=== PATIENT | female | born 1940 | race Caucasian/White ===

== ENCOUNTER 2017-02-10 12:41 | Inpatient (IN) | payer MEDICARE, OTHER ==
[~2017-02-10] VITALS: Ht 177.8 cm; Wt 80.7 kg
[2017-02-10 13:48] VITALS: BP 106/65; PULSE 84; RESP 18; O2SAT 95
[2017-02-10 14:27] LABS: Platelet Count 303 bil/L (150-400)
[2017-02-10 14:47] LABS: BASOPHILS % (AUTO) 1 % (0-3); EOSINOPHILS % (AUTO) 0 % (0-5); MONOCYTES % (AUTO) 3 % (4-12); NEUTROPHILS % (AUTO) 73 % (40-74)
[2017-02-10 14:51] VITALS: PULSE 87
[2017-02-10] MEDS ORDERED: ALBU18HF INH (14:53)
[2017-02-10] MEDS ORDERED: BISA-67 PO (14:54)
[2017-02-10] MEDS ORDERED: CETI10CA PO (14:56)
[2017-02-10] MEDS ORDERED: CITA40TA PO (14:56)
[2017-02-10] MEDS ORDERED: HYDR25CA PO (14:57)
[2017-02-10] MEDS ORDERED: DOCU-41 PO (14:57)
[2017-02-10] MEDS ORDERED: LEVO50TA6 PO (14:59)
[2017-02-10] MEDS ORDERED: LISI-571 PO (14:59)
[2017-02-10] MEDS ORDERED: INSU100I SUBQ (14:59)
[2017-02-10] MEDS ORDERED: LIT300 PO (15:00)
[2017-02-10] MEDS ORDERED: LOVA40TA PO (15:00)
[2017-02-10] MEDS ORDERED: METF500T3 PO (15:01)
--- NOTE | 2017-02-10 15:01 | PCM.HPMED ---
Subjective Date of Service Feb 10, 2017 Primary Provider: Admitting Physician: Aiyana Kirk MD Primary Care Physician: Cassy Rogers MD Attending Physician: Aiyana Kirk MD Chief Complaint: Diarrhea vomiting and abdominal pain History of Present Illness: Patient is markedly confused, therefore I was not able to obtain detailed history from the patient as per the report from [facility] This is a 76-year-old Female who has history of diabetes, arthritis, asthma, hypothyroidism, GERD, hyperlipidemia, bipolar disease, hypertension presented initially yesterday with diarrhea, vomiting and abdominal pain at [facility]. Came in by aid car. At the time of presentation, patient reports that she had been sick for about one week but she was already looked quite confused and sleepy. In the emergency room at [facility], patient did have some rectal bleeding, liquid and runny stools. Patient did not have any fevers. Patient had CT ABDOMEN with contrast shows patient has diffuse colitis from transfers, descending, sigmoid colon was thought to be chronic with unclear etiology. I will noted, patient had colonoscopy in June 2016 at [facility] which showed diverticulosis as well as large internal hemorrhoids, one of which was ulcerated. Patient was admitted with diagnosis of colitis, patient was given IV ceftriaxone and Flagyl, however patient continued to have abdominal pain, nausea. Given elevated ALP and gallstones seen on CAT scan, patient had ultrasound of abdomen which showed signs of cholecystitis with multiple gallstones. Because operating room at [facility] under construction, patient was transferred to [facility] after discussion with Dr. Mai Hanna surgeon at [facility], tentative scheduled for surgery this evening. During the interview at [facility] [place] arrival, VS remained stable. pt answered in full sentences, but not coherent, unable to answer questions appropriately, seemed paronoid, stated that she wanted to go home, wants to call visual design lead. denied came in to [facility] by aid car. Patient admitted that she has some nausea , otherwise patient was alert, only oriented to herself. Review of Systems: Pertinent positives as noted in history of present illness. All other systems were reviewed and are negative Allergies Coded Allergies: Penicillins (Verified Allergy, Mild, rash, 02/10/17) levofloxacin (Verified Allergy, Mild, 02/10/17) redness/burning at injection site sulfamethoxazole (Verified Allergy, Mild, rash, 02/10/17) trimethoprim (Verified Allergy, Mild, rash, 02/10/17) bupivacaine (Verified Allergy, Unknown, 02/10/17) lidocaine (Verified Allergy, Unknown, 02/10/17) Advised by surgeon not to use Home Medications Dulcolax Olopatadine 2.5 mL drops Colace 100 mg daily Zyrtec 10 mg daily when necessary Excedrin 250-250-65 one tablet when necessary Tapentadol 50 mg every 4 when necessary for pain Triamcinolone 0.1% ointment 3 times a day Albuterol 1 puff as needed Omeprazole 20 mg daily Lisinopril 5 mg daily Lovastatin 40 mg daily Levothyroxine 50 mcg Citalopram 40 mg Metformin ER 1000 mg daily at bedtime [place] carbonate 300 mg twice a day Hydroxyzine 25 mg every 4h PMH Type II diabetes Arthritis Asthma Hypothyroidism GERD Hyperlipidemia Bipolar disease recent detached retina Stated history of temporal arteritis Hypertension Vertigo GI bleed Surgical History OLIMPIA /BSO Left rotator cuff repair Cataract surgery left eye Recent right eye retinal laser surgery Left rotator cuff surgery February 2016 Foot fracture repair Social History Hx Alcohol Use: No Hx Substance Use: No Hx Tobacco Use: No Exam Exam pt only allowed limited abdominal exam, abd soft and mildly tender periumbilical area, Assessment & Plan This is a 76-year-old male who has history of diabetes, arthritis, asthma, hypothyroidism, GERD, hyperlipidemia, bipolar disease, hypertension presented initially yesterday with diarrhea, vomiting and abdominal pain. pt was found to have colitis, cholescystitis. pt was transferred to [facility] due to unavailability of OR at [facility]. Acute, active Acute encephalopathy, POA, likely septic or exacerbated BPD, nonfocal on exam grossly -will continue home psychiatric meds today -neurocheck q2-4h acute on chronic colitis, POA, unclear this is source of infection, report from radiology stated this is more chronic etiology, pt is not reliable historian. pt was started on CFX, flagyl at [facility] -will continue CFX, flagyl for now, pt seems clinically improving as she is more alert, pt does have allergy to Levaquin -continue IVF 125cc/hr -stool PCR, FOBT given hx of GIB, liquid stool, reported GIB at [facility] acute cholecysitis, POA, based on CT/US from [facility], -awaits repeat labs, surgical eval. -keep NPO DERICK, POA, reportedly pt doesn't have CKD at baseline, prerenal vs ATN from infection. -continue hydrate, Chronic, stable Type II diabetes, get a1c, CMP, fsg qac, hs Arthritis, not active Asthma, seemed stable, continue albuterol prn, Hypothyroidism, continue home synthyroid GERD, continue PPI 20mg qd Hyperlipidemia, continue home statin Bipolar disease, as above recent detached retina, continue eye drops Stated history of temporal arteritis, seemed unlikely contributing current presentation. Hypertension, resume home meds once med rec done Vertigo hx of GIB, as above dispo:Patient will be admitted with inpatient status with expectation of inpatient therapy for more than 2 midnights diet:NPO for now dvt ppx:SCD Full code for now contact: sibling documented in chart, number not in service. Time spent 65min Barney Lin MD Feb 10, 2017 13:42
[2017-02-10] MEDS ORDERED: OLOP2.5D OP (15:02)
[2017-02-10] MEDS ORDERED: OMEP20CA11 PO (15:02)
[2017-02-10] MEDS ORDERED: TAPE50TA7 PO (15:03)
[2017-02-10] MEDS ORDERED: KEN1O TOP (15:04)
[2017-02-10] MEDS ORDERED: cefTRIAXone Inj 1,000 MG in Dextrose 5% Minibag Plus 50 ML IV ONE (15:10)
--- NOTE | 2017-02-10 15:47 | PCM.HPSURG ---
Subjective Date of Service: Feb 10, 2017 Referring Provider: Admitting Physician: Aiyana Kirk MD Primary Care Physician: Cassy Rogers MD Attending Physician: Aiyana Kirk MD Chief Complaint Abdominal pain and diarrhea History of Present Illness Marina Holman is a 76 year old female who is confused and unable to provide a history. Thus, her history is gleaned from the transfer records from [facility]. Marina has a history of diabetes, arthritis, asthma, hypothyroidism, GERD, hyperlipidemia, bipolar disease, hypertension. She reportedly presented to their ED on 02/09/2017 with multiple bouts of diarrhea, vomiting, nausea and abdominal pain. She was noted to have some rectal bleeding and liquid brown stools. She underwent CT Abdomen and Pelvis which demonstrated diffuse colitis of unknown etiology. She was started on IV ceftriaxone and flagyl but continued to have abdominal pain and nausea this morning. She underwent an abdominal ultrasound demonstrating an immobile gallstone but no associated gallbladder wall thickening or pericholecystic fluid. However, given her worsening confusion , signs of possible cholecystitis and diffuse colitis she was accepted in transfer to [facility] because no OR capabilities were available at [facility]. On arrival to the floor she is afebrile, hemodynamically normal, not tachycardic or tachypneic, has not peritoneal signs but is very confused and paranoid that she is involved in some sort of scheme. She does understand she is at a hospital and can identify herself. She is unable to identify any family members. Allergy Allergies: Coded Allergies: Penicillins (Verified Allergy, Mild, rash, 02/10/17) levofloxacin (Verified Allergy, Mild, 02/10/17) redness/burning at injection site sulfamethoxazole (Verified Allergy, Mild, rash, 02/10/17) trimethoprim (Verified Allergy, Mild, rash, 02/10/17) bupivacaine (Verified Allergy, Unknown, 02/10/17) lidocaine (Verified Allergy, Unknown, 02/10/17) Advised by surgeon not to use Medications Home medications Dulcolax Olopatadine 2.5 mL drops Colace 100 mg daily Zyrtec 10 mg daily when necessary Excedrin 250-250-65 one tablet when necessary Tapentadol 50 mg every 4 when necessary for pain Triamcinolone 0.1% ointment 3 times a day Albuterol 1 puff as needed Omeprazole 20 mg daily Lisinopril 5 mg daily Lovastatin 40 mg daily Levothyroxine 50 mcg Citalopram 40 mg Metformin ER 1000 mg daily at bedtime [place] carbonate 300 mg twice a day Hydroxyzine 25 mg every 4h Past Surgical History Operations: OLIMPIA /BSO Left rotator cuff repair Cataract surgery left eye Recent right eye retinal laser surgery Left rotator cuff surgery February 2016 Foot fracture repair Social History Hx Alcohol Use: No Hx Substance Use: No Hx Tobacco Use: No PMH Other History Other Pertinent History: Type II diabetes, Arthritis. Asthma, Hypothyroidism, GERD, Hyperlipidemia, Bipolar disease, Recent detached retina, Stated history of temporal arteritis, Hypertension, Vertigo, GI bleed Social History Hx Alcohol Use: NoHx Substance Use: NoHx Tobacco Use: No Review of Systems Gastrointestinal: Reports: Abdominal Pain, Diarrhea, Nausea Additional Information Unable to assess, patient confused and cannot participate in interview. H&P Surgical Exam Exam General: Alert, No Acute Distress Neck: Supple Lungs: Clear to Auscultation, Normal Air Movement Heart: Regular Rate/Rhythm Abdomen: Soft, Non-distended, No masses, Other (Tender to deep palpation in the left lower quadrant and suprapubic region. Negative Denise's sign. Non tender in the RUQ. Vertical umbilical scar. No other surgical scars appreciated. ) Extremities: Distal Pulses Palpable, Warm Neuro: Grossly Neurologically Intact Catheters: Urethral 2 [address] [facility] Results: [facility] Results significant for: AlkP 184, BUN 33, Cr 2, WBC 12.8, Hct 35.8, Neutrophils 84% and ALT/AST/Total bilirubin within normal limits. Stool PCR negative Stool culture pending. Diagnostics: CT Abdomen/Pelvis: Active colitis involving transverse, descending and sigmoid colon. Similar to previous CT scans suggesting recurrent colitis. Cholelithiasis without evidence of cholecystitis. US Abdomen: Multiple gallstones, 1.3cm nonmobile stone in gallbladder neck. No intra/ extrahepatic biliary ductal dilatation. Gallbladder wall thickness normal, no pericholecystic fluid. Assessment & Plan Assessment 76 year old female with altered mental status, abdominal pain and diarrhea in the setting of recurrent transverse, descending and sigmoid colitis, leukocytosis, and abdominal ultrasound findings of cholelithiasis in the absence of acute cholecystitis lab or US findings and abdominal exam with isolated LLQ tenderness. Plan: Her clinical presentation, lab findings and exam lend to a differential diagnosis including infectious colitis and/or acute cholecytitis. We would recommend repeating labwork including CBC and CMP and obtaining a HIDA scan to assess for cholecystitis given her inconsistent labs, US findings and abdominal exam. She should be kept NPO on IV fluids for hydration in case surgery is recommended and she should continue on IV antibiotics (ceftriaxone and flagyl). Appreciate management of medical team for other chronic medical problems. We will follow up on HIDA scan results and make a determination regarding surgical intervention. Rangel Cota MD Feb 10, 2017 15:47
[2017-02-10] MEDS: 0.9% Sodium Chloride 1,000 ML IV SCH (16:09)
[2017-02-10] MEDS: cefTRIAXone Inj 2,000 MG in Dextrose 5% Minibag Plus 50 ML IV SCH (16:18)
[2017-02-10 16:42] VITALS: BP 103/65; PULSE 100; RESP 18; O2SAT 95
[2017-02-10] MEDS: metroNIDAZOLE Inj 500 MG in IV Premix 1 EACH IV SCH (16:57)
--- NOTE | 2017-02-10 18:31 | NUR ---
Admission patient transferred from [facility] with Acute on Chronic Colitis and Acute Cholecystitis. patient arrived to [facility] room 2008 at approx 1345hrs today. patient c/o abdominal pain/bloating/discomfort but refused and antinausea or pain medications. She alert to self and occasionally place. forgetful and paranoid wanting to call the police on staff. patient is aware she's suppose to have surgery, but is very confused about details of her transfer and is unclear why she isn't going now. requires frequent reorientation. Med Rec completed to the best of my ability. patient poor historian secondary to confusion now. Medication list acquired from transfer paperwork.. continue to monitor, continue with current plan of care.
[2017-02-10 20:22] VITALS: BP 101/61; PULSE 95; RESP 18; O2SAT 94
--- NOTE | 2017-02-10 20:42 | DRSVH ---
PROCEDURE: NM HIDA SCAN WITHOUT CCK RADIOPHARMACEUTICAL: 5.1 mCi Tc-99m mebrofenin IV. INDICATIONS: 76 year-old female with concern for acute cholecystitis on recent ultrasound. TECHNIQUE: Following intravenous administration of Tc-99m mebrofenin, sequential anterior abdominal images were obtained through at least 60 minutes. COMPARISON: [facility], US, ABDOMEN COMPLETE, 02/10/2017, 8:37. FINDINGS: There is normal tracer uptake and excretion by the liver. There is normal visualization o f intrahepatic ducts, common bile duct, and the gallbladder. There is normal tracer excretion into d uodenum. IMPRESSION: There is uptake of radiotracer within the gallbladder lumen, therefore reassuring for no acute cholecystitis at this time. Dictated by: Shad Powell M.D. on 02/10/2017 at 20:37 Approved by: Shad Powell M.D. on 02/10/2017 at 20:40
[2017-02-11] VITALS (10 sets, daily range): BP systolic 106–123; BP diastolic 63–75; PULSE 64–96; RESP 18; O2SAT 95–98
[2017-02-11] MEDS: 0.9% Sodium Chloride 1,000 ML IV SCH (01:13)
[2017-02-11] MEDS: metroNIDAZOLE Inj 500 MG in IV Premix 1 EACH IV SCH ×3 (01:14→16:53)
[2017-02-11] MEDS: Ondansetron 2 mg/mL 2 mL Inj IVPUSH PRN ×3 (01:15→20:50)
--- NOTE | 2017-02-11 06:03 | NUR ---
Nausea/ Mentation Pt at [facility] at shift change. Pt reports abdominal pain and nausea upon return but refused all offered pain and nausea meds. Pt confused about place and situation, thinks she is in [place] and is very surprised that she is in the hospital but is aware that he needs surgery. Pt also appears suspicious of staff but when she starts retching she is willing to accept one dose of Zofran, which is effective.
[2017-02-11 06:05] LABS: BASOPHILS % (AUTO) 0.2 % (0-3); EOSINOPHILS % (AUTO) 0.5 % (0-5); MONOCYTES % (AUTO) 6.3 % (4-12); Mean Corpuscular Hemoglobin 26.4 pg (27.0-35.0); Mean Corpuscular Volume 87.4 fL (81-100); NEUTROPHILS % (AUTO) 80.9 % (40-74); Platelet Count 242 bil/L (150-400)
--- NOTE | 2017-02-11 10:32 | PCM.PNMED ---
Subjective Date of Service Feb 11, 2017 Subjective pt still has loose stools and c/o nausea, diffuse abd pain, poor appetite, however, pt is more alert and oriented, cannot remember what happened yesterday, still intermittently confused, wants to go home after multiple discussion, clarification of her status. PCT trending down, remained afebrile. Surgery consulted, recommended HIDA scan which showed no acute cholecystitis. Exam Vital Signs Vital Sign - Last Date Time Temp Pulse Resp B/P Pulse Ox O2 Delivery O2 Flow Rate FiO2 02/11/17 09:06 36.6 71 18 123/75 98 Nasal Cannula 2.00 Intake and Output 02/10/17 02/10/17 02/11/17 Cumulative From/Thru 15:00 23:00 07:00 02/10/17 14:06 - 02/11/17 06:34 Intake Total 2021 ml 2021 ml Output Total 875 ml 875 ml Balance 1146 ml 1146 ml Intake Oral 0 ml 0 ml IV Total 2021 ml 2021 ml Output Urine Total 875 ml 875 ml Exam mildly agitated, distressed, no JVD, MMM, no LAD RRR, nl s1, s2 no mrg CTAB, no w,c S,ND,diffuse abd td,normoactive BS+ warm, no edema, pulses 2/2 IVs and Medications Medications Reviewed: Medications were reviewed in detail Lab and Diagnostics Result Diagram: 02/11/1753902/11/17 0540 Assessment & Plan This is a 76-year-old male who has history of diabetes, arthritis, asthma, hypothyroidism, GERD, hyperlipidemia, bipolar disease, hypertension presented initially yesterday with diarrhea, vomiting and abdominal pain. pt was found to have colitis, cholescystitis. pt was transferred to [facility] due to unavailability of OR at [facility]. Acute, active Acute encephalopathy, POA, likely septic or exacerbated BPD, nonfocal on exam grossly -pt seemed close to her baseline as infection clears up -will continue home psychiatric meds, tx for colitis -neurocheck q2-4h acute on chronic colitis, POA, probable infectious colitis on transverse, descending, sigmoid colon based on CT from [facility]. Report from radiology stated this is more chronic etiology, pt is not reliable historian. pt was started on CFX, flagyl at [facility] -overall, clinically improving, still has loose stool. FOBT+, h/h remained stable -will continue CFX, flagyl for now, pt does have allergy to Levaquin -s/p IVF 125cc/hr, stop today given hypernatremia, encouraged oral hydration. -stool PCR, given liquid stool, reported GIB at [facility] suspected acute cholecysitis, POA, based on CT/US from [facility], HIDA scan 02/10 unremarkable. -appreciate surgery service follow up -likely resume diet clears. DERICK, POA, reportedly pt doesn't have CKD at baseline, prerenal vs ATN from infection. -improving with IVF -continue hydrate, Chronic, stable Type II diabetes, glc in target w/o insulin, will monitor fsg qam. Arthritis, not active Asthma, seemed stable, continue albuterol prn, Hypothyroidism, continue home synthyroid GERD, continue PPI 20mg qd Hyperlipidemia, continue home statin Bipolar disease, as above recent detached retina, continue eye drops Stated history of temporal arteritis, seemed unlikely contributing current presentation. Hypertension, resume home meds once med rec done Vertigo hx of GIB, as above dispo:likely 2-3more days diet:clears dvt ppx:SCD Full code for now contact: sibling documented in chart, number not in service. Time spent 35min Barney Lin MD Feb 11, 2017 10:32
--- NOTE | 2017-02-11 12:35 | NUR ---
Concern about patient's living condition With patient's consent, I spoke with Germania See, friend. Germania reported several concerns about patient's medical condition and living situation. patient lives alone with no family in the area, 2 sons that live in [place] and a brother that lives in [place]. Germania stated that when she went to check on patient's house, after patient was admitted to [facility], she found the bed and bedroom covered in liquid stool and dog feces throughout the house. the house was is disarray. Germania stated and the current condition of patient's house is "unsafe". Germania also stated that she's unsure if patient has been taking her medications on a regular bases or as prescribed. patient has become more confuses, forgetful and paranoid recently (prior to admit) and is concerned that the patient is not able to care for herself anymore stating that patient no longer cooks or prepares meals for herself, relying on fast food. Germania requests that Social Work get involved in patient's care. Dr Lin notified of Germania's concern. patient signed paperwork authorizing the hospital staff to talk with Germania about her care.
--- NOTE | 2017-02-11 13:16 | PROG NOTE ---
[address] [address] PROGRESS NOTE PATIENT: HIRA GORDON : 1940 MR#: [id number] ADMIT: 02/10/2017 JOB ID: [id number] DATE: 02/11/2017 PROGRESS NOTE: The patient is transferred from [facility] last evening with a working diagnosis of colitis and concerns for cholecystitis. The patient is still somewhat confused today. Is oriented to self and intermittently place, but time is random. She would like to go home; however, she is still having abdominal pain and she is not sure if she is having diarrhea or not. HIDA scan shows no acute cholecystitis, probable chronic cholecystitis. LABORATORY WORK: Shows a resolution in some of her renal insufficiency. Creatinine from 1.93 to 1.50. Pro calcitonin is decreasing as well with her hydration. White count is normal at 9.1, neutrophils 80.9. No reported bandemia. VITAL SIGNS: Heart rate of 71, BP 123/75, respiratory rate of 18. She is 98% on 2 L nasal cannula and temperature 36.6. PHYSICAL EXAM: A delightful confused female, very talkative and alert. Abdomen is soft, but clearly tender more in the periumbilical area today, but no peritonitis. IMPRESSION: Interesting case. Patient did have an elective colonoscopy in June at [facility] that showed diverticulosis, but no other mucosal abnormalities. She has a prior scan from 2012 showing the same distribution of cholecystitis which is a little erratic to be explained by diverticulosis or ischemic. Presumption is infectious colitis, for which she is on Levaquin and Flagyl per the medical hospitalist team. PLAN: At this time, she will be receiving supportive care per medical hospitalist. There is no need for surgical intervention. If she returns to her baseline, it might be beneficial for an elective cholecystectomy, but certainly not critical. Would like to sign off at this time. Please re-consult with any issues or call with any questions.
[2017-02-11] MEDS: cefTRIAXone Inj 2,000 MG in Dextrose 5% Minibag Plus 50 ML IV SCH (15:58)
--- NOTE | 2017-02-11 16:52 | NUR ---
Social Work: Brief Note
--- NOTE | 2017-02-11 17:00 | NUR ---
Social Work: Brief Note Data & Assessment: EMR reviewed. Patient is a 76 year old female who was admitted on 02/10/2017 and transferred from [facility]. Patient was admitted with a diagnosis of possible pancreatitis. Patient's insurance is Medicare [facility] Patient's PCP is Dr. Cassy Rogers. SW has been unable to complete initial assessment. Patient is A&O x1. DAV spoke with primary RN regarding concerns for patient's living situation. Please see RN note for additional information. RN provided SW with contact information for patient's friend Germania ([phone](h) / [phone](c)). SW called both numbers for Germania. The provided home number has been disconnected. SW has left a voicemail on cell and currently awaiting a return phone call. SW called NOK (Uriel Claire - brother) at provided phone number. SW was unable to reach brother due to phone number being disconnected. SW found contact information for a friend named Dafne Arredondo ([phone]). SW called and left a voice message. SW is awaiting a call back. SW will continue to follow for needs. Patient will likely need placement. Plan: Patient will likely need placement. SW will continue to follow. KANWAL Bartholomew
--- NOTE | 2017-02-11 17:47 | NUR ---
mentation this afternoon patient seams to be clearing slightly compared to this morning and last night. alert to self and occasionally place. she's answering questions more appropriately and is less paranoid. She's has several episodes of loose/diarrhea stools, samples have been sent to lab. Dr Lin has been made aware of Germania's (friend) concerns about patient's living condition and that she feels that it would be unsafe for patient to return home alone. continue with plan of care.
[2017-02-12] VITALS (8 sets, daily range): BP systolic 124–153; BP diastolic 63–84; PULSE 71–80; RESP 16–20; O2SAT 93–97
[2017-02-12] MEDS: metroNIDAZOLE Inj 500 MG in IV Premix 1 EACH IV SCH ×3 (01:07→16:48)
--- NOTE | 2017-02-12 06:17 | NUR ---
Pain/Nausea Pt reports some abdominal discomfort, Tylenol given x1, effective, Zofran for nausea, effective. Pt has intermittent retching, able to tolerate clear liquids otherwise well. Pt A&O, able to make needs known and have meaningful conversation.
[2017-02-12] MEDS: Ondansetron 2 mg/mL 2 mL Inj IVPUSH PRN ×2 (08:39→18:53)
[2017-02-12 10:25] LABS: Mean Corpuscular Hemoglobin 26.3 pg (27.0-35.0)
[2017-02-12 10:28] LABS: BASOPHILS % (AUTO) 0.4 % (0-3); EOSINOPHILS % (AUTO) 1.7 % (0-5); Mean Corpuscular Volume 88.2 fL (81-100); NEUTROPHILS % (AUTO) 81.3 % (40-74); Platelet Count 242 bil/L (150-400)
--- NOTE | 2017-02-12 11:37 | PCM.PNMED ---
Subjective Date of Service Feb 12, 2017 Subjective pt remained alert and oriented. still has poor appetite but thinks she is getting better. denied diarrhea. but still has diffuse abd pain, pt c/o sensation that water is stuck in her throat, wants to have more icecubes remained afebrile, PCT trending down nicely Exam Vital Signs Vital Sign - Last Date Time Temp Pulse Resp B/P Pulse Ox O2 Delivery O2 Flow Rate FiO2 02/12/17 09:10 80 02/12/17 09:06 Supplement Oxygen 02/12/17 08:56 36.5 16 137/84 96 02/11/17 18:21 2.00 Intake and Output 02/11/17 02/11/17 02/12/17 Cumulative From/Thru 15:00 23:00 07:00 02/10/17 14:06 - 02/12/17 06:28 Intake Total 2019 ml 403 ml 4443 ml Output Total 1300 ml 900 ml 3075 ml Balance 719 ml -497 ml 1368 ml Intake Oral 1320 ml 318 ml 1638 ml IV Total 699 ml 85 ml 2805 ml Output Urine Total 1300 ml 900 ml 3075 ml # Bowel Movements 7 2 9 Exam mildly agitated, distressed, no JVD, MMM, no LAD RRR, nl s1, s2 no mrg CTAB, no w,c S,ND,diffuse abd td,normoactive BS+ warm, no edema, pulses 2/2 IVs and Medications Medications Reviewed: Medications were reviewed in detail Lab and Diagnostics Result Diagram: 02/12/17 1015 02/11/17 0540 Assessment & Plan This is a 76-year-old male who has history of diabetes, arthritis, asthma, hypothyroidism, GERD, hyperlipidemia, bipolar disease, hypertension presented initially yesterday with diarrhea, vomiting and abdominal pain. pt was found to have colitis, cholescystitis. pt was transferred to [facility] due to unavailability of OR at [facility]. Acute, active acute on chronic colitis, POA, probable infectious colitis on transverse, descending, sigmoid colon based on CT from [place]. Report from radiology stated this is more chronic etiology. pt was started on CFX, flagyl at [place]. pt responded well to abx although stool PCR is negative. -overall, clinically improving, has less loose stool. FOBT+, h/h remained stable -will continue CFX, flagyl for now, pt does have allergy to Levaquin -s/p IVF 125cc/hr, stopped 02/11 given hypernatremia, encouraged oral hydration. dysphagia with clear liquid, developed 02/11-, no aspiration episodes, will get s/s eval today, diet switched to honey thick for now DERICK, POA, reportedly pt doesn't have CKD at baseline, prerenal vs ATN from infection. -improving with IVF -continue hydrate, Chronic, stable Acute encephalopathy, POA, likely septic, resolved as infection improves. suspected acute cholecysitis, POA, based on CT/US from [facility], HIDA scan 02/10 unremarkable. therefore no need for surgical intervention per surgical consult. Type II diabetes, glc in target w/o insulin, will monitor fsg qam. Arthritis, not active Asthma, seemed stable, continue albuterol prn, Hypothyroidism, continue home synthyroid GERD, continue PPI 20mg qd Hyperlipidemia, continue home statin Bipolar disease, continue Li recent detached retina, continue eye drops Stated history of temporal arteritis, seemed unlikely contributing current presentation. Hypertension, resume home meds once med rec done Vertigo hx of GIB, as above dispo:likely 2-3more days, complicated given reported unsafe home environment, likely needs higher level of care, awaits PT diet:dysphagia diet dvt ppx:SCD Full code for now contact: Germania, friend. Time spent 35min Barney Lin MD Feb 12, 2017 11:29
[2017-02-12] MEDS: Pantoprazole 20 mg ER24 Tablet PO SCH (12:10)
[2017-02-12] MEDS: Heparin 5,000 Unit/mL Inj SUBQ SCH ×2 (12:11→20:22)
[2017-02-12] MEDS: cefTRIAXone Inj 2,000 MG in Dextrose 5% Minibag Plus 50 ML IV SCH (15:19)
--- NOTE | 2017-02-12 15:30 | NUR ---
living conditions patient's friend Germania Rousem came to visit patient today. Germania notified medical staff specialist that she's concerned about patient's current living condition. She stated that "it looks like a hoarders house. she hasn't done her dishes in weeks.". Germania also reports that patient has been unable to manage her finances, no longer has a phone because she hasn't payed the bill. Germania reports that she doesn't feel it's safe for patient to return home. information relayed to social work.
--- NOTE | 2017-02-12 16:22 | NUR ---
Social Work: Initial Assessment / Multidisciplinary Rounds Data: See initial assessment. Patient is a 76 year old female who was admitted on 02/10/17 for possible pancreatitis per H&P. Patient's insurance is Medicare and [facility]. Patient's PCP is Cassy Rogers MD. EMR reviewed. SW met with patient to discuss discharge planning. SW role explained. Patient's friend Germania ([phone](h) / [phone](c)) was at bedside and requested to speak with SW alone. Germania informed DAV that patient lives alone in a one story home located in [place]. Germania states that she and another friend Dafne Arredondo ([phone]) are patient's main source of support. Germania states that patient has a brother named Uriel Claire who lives in [place] and two sons Ko & Rudy Holman who live in [place]. Patient does drive and was previously able to provider her own transportation needs. Germania states that patient does not have a hx of home health services or SNF. Patient also does not have any group home care insurance or VA benefits. Germania informed DAV that prior to coming to the hospital today, she contact patient's brother to update him on patient. Germania states that it seems as if patient's brother will be unable to provide support. Germania states that she will attempt to contact patient's sons. Germania informed DAV that patient and her family have a long hx and haven't been very supportive of patient. Germania states that patient's son Rudy would likely be willing to assist with discharge planning. Germania provided DAV with a list of contact numbers for available family members. DAV has included info on the inside of patient's chart. DAV has provided patient with a discharge planning checklist and encouraged to call with any questions or concerns. DAV has also provided number to Germania so that it can be passed along to patient's sons. Patient was discussed in morning rounds. Patient has been confused since admission and also prior to admission. PT has been ordered to evaluate patient. Patient will likely need placement due to confusion and inability to provide self care at this time. SW will continue to follow. Assessment: Patient will likely need placement due to confusion and inability to provide self care at this time. Plan: Patient will likely need placement due to confusion and inability to provide self care at this time. PT has been ordered and will evaluate patient. SW will work to get in contact with family so that assistance can be obtained for discharge planning. DAV will continue to follow. Family Contacts: Lenny Spain (son) Home: Rudy Spain (son) Home: Uriel Claire (brother) KANWAL Bartholomew Addendum: 02/12/17 at 1653 by BLU DIA Amended: Links added.
--- NOTE | 2017-02-12 16:50 | NUR ---
Evaluation completed. Please go to "Notes" then click on "Assessments and Notes" (bottom left corner of screen). Then select appropriate discipline tab on top of screen.
--- NOTE | 2017-02-12 17:29 | NUR ---
urinary retention received order this am to remove hansen catheter with voiding trial, instilling 200-300ml of NS into bladder prior to removing with patient attempting to void within one hour. Hansen DC'd at 1215hrs, after instilling 200ml of NS into bladder. within first hour patient up to BSC, having loose stool. patient unsure if she was able to empty bladder at that time stating, "everything came out at once". at 1400hrs patient attempted to void without success. bladder scan revealed 450ml in bladder. patient wanted to wait and try again later. at 1530hrs another unsuccessful attempt to void with bladder scan at 533ml. Dr Lin notified with new order to in/out straight cath Q4hrs PRN if bladder scan greater than 300ml. in/out straight cath performed with 700ml. patient educated on Kegle exercised and voiding as soon as she gets the urge. patient will require reinforcement with education. continue to monitor.
--- NOTE | 2017-02-12 20:27 | NUR ---
FOR SOCIAL WORK With permission from Marina this RN called Luanne, [id number] who lives in [place]. Answered her questions regarding patient's plan of care and pts. status. Luanne would like social work to call to see what the next step is regarding DPOA and living situation. New numbers for social work are: Lenny (son) [phone] Rudy (son) [phone]
[2017-02-13] VITALS (7 sets, daily range): BP systolic 127–141; BP diastolic 64–80; PULSE 59–69; RESP 16–18; O2SAT 91–98
[2017-02-13] MEDS: metroNIDAZOLE Inj 500 MG in IV Premix 1 EACH IV SCH ×4 (00:51→23:53)
--- NOTE | 2017-02-13 07:22 | NUR ---
Urinary Retention Patient alert and oriented to self and place. Denies pain, nausea or SOB. Pt was reminded to try use commode several times tonight but was unable to void. PVR >900, I& O cath output 850cc. Later bladder scan was 204cc. Patient denies having any discomfort o urge to void.
[2017-02-13] MEDS: Pantoprazole 20 mg ER24 Tablet PO SCH (08:08)
[2017-02-13] MEDS: Heparin 5,000 Unit/mL Inj SUBQ SCH ×2 (08:10→19:41)
--- NOTE | 2017-02-13 15:01 | NUR ---
NUTRITION ASSESSMENT: ASSESS: 76 YO female admitted for possible pancreatitis, diarrhea, vomiting, abd. pain with diffuse colitis and suspected acute cholecystis. Pt with minimal po intake now x 3 days of bites-25% of meals. Per notes, pt is more alert and oriented today. PMHx: Diabetes type II, arthritis, asthma, hypothyroidism, GERD, hyperlipidemia, bipolar, disease, HTN, GI bleed, vertigo. LABS: Reviewed. Cr 1.12, Glu 117, Alb 3.0. MEDS: Reviewed. GI: BM x 6 (02/12) CURRENT WT: 80.7 kg. DIET: Pureed, Thins, Diabetic. PO bites -25%. EST. NEEDS: 3959-9304 kcals (25-30 kcals/kg BW), 95-120 g protein (1.2-1.5 g/kg BW) NUTRITION DIAGNOSIS: 1.) Chewing / Swallowing difficulties related to delayed swallow as evidenced by current need for mechanically altered diet texture, ST following. 2.) Inadequate oral intake related to decreased mentation and altered GI function as evidenced by po intake of 0-25% of meals x 3 days and diarrhea. NUTRITION INTERVENTION: 1.) Continue to advance diet as able per ST recommendations. 2.) Will add Glucerna TID between meals to encourage increased po intake. MONITOR / EVAL: PO intake, labs, GI / nutritional status. Follow per moderate nutritional risk guidelines.
--- NOTE | 2017-02-13 15:26 | NUR ---
Social Work-continued d/c planning: Data:EMR reviewed. Pt is on day 3 of hospitalization for poss pancreatitis per H&P. Pt is not medically stable anticipate several more days. PT has worked with pt and is recommending SNF. order received for SNF placement. DAV meet with pt, SW role explained. DAV explained recommendation for SNF placement, SNF choice list provided. Pt states she would like a referral to [facility] in [place]. Pt is agreeable for SW to reach out to her son's. DAV placed a call to son Rudy [phone], DAV role explained. SW explained recommendation of SNF. Son states he is a barge pilot and is currently on the road and recommends SW call his brother Lenny. DAV placed a call to Lenny [phone] and left message requesting a return call. DAV reviewed RN notes from pt's friend Germania. Pt's friend Germania reports concerns around pt not being able to manage at home and her house having feces( human and animal in the house). Pt is a hoarder and has not been taking her medications. SW completed APS report. Paperwork and PASRR in the chart. SW will continue to follow. Assessment:Pt who would benefit from SNF. Plan:Referral made to [facility]. Paperwork and PASRR in the chart. SW will continue to follow. KANWAL Juan Addendum: 02/13/17 at 1719 by SHARAN KERR SS DAV received a call back from pt's son Ko. Ko states that he believes that pt's brother is DPOA and has access to her bank account. Ko requests SW call her brother and if he does not want to assist, Ko is happy to help. SW to call brother tomorrow. SW updated Ko that pt will likely need SNF at discharge. DAV also discussed longer term care planning, higher level of care, IE assisted living. KANWAL Juan
--- NOTE | 2017-02-13 15:41 | NUR ---
VOIDING Patient voided 1600ml to BSC today, residual 110ml per bladder scan. Prior to this void patient had urinary retention issues, and had previously needed straight catheter Q6. SW to work with family for d/c placement to SNF. Barium swallow today, pending results. New diet- ADA dyph/mech/thin liquid no lactose,
[2017-02-13] MEDS: cefTRIAXone Inj 2,000 MG in Dextrose 5% Minibag Plus 50 ML IV SCH (16:06)
[2017-02-13] MEDS: Ondansetron 2 mg/mL 2 mL Inj IVPUSH PRN (17:05)
[2017-02-13] MEDS ORDERED: 0.9% Sodium Chloride 250 ML ONE (23:54)
[2017-02-14 04:14] VITALS: BP 163/80; PULSE 62; RESP 16; O2SAT 96
[2017-02-14 06:09] LABS: Magnesium 1.8 mg/dL (1.6-2.6)
[2017-02-14] MEDS: metroNIDAZOLE Inj 500 MG in IV Premix 1 EACH IV SCH ×2 (08:32→19:59)
[2017-02-14] MEDS: Pantoprazole 20 mg ER24 Tablet PO SCH (08:33)
[2017-02-14] MEDS: Heparin 5,000 Unit/mL Inj SUBQ SCH ×2 (08:37→19:58)
--- NOTE | 2017-02-14 09:45 | PCM.PNMED ---
Subjective Date of Service Feb 13, 2017 Subjective pt still has urinary retention, required q4h straight cath, denied any urge to urinate, pt still nauseas Exam Vital Signs Vital Sign - Last Date Time Temp Pulse Resp B/P Pulse Ox O2 Delivery O2 Flow Rate FiO2 02/13/17 04:10 36.8 69 16 135/70 95 Room Air 02/11/17 18:21 2.00 Intake and Output 02/12/17 02/12/17 02/13/17 Cumulative From/Thru 15:00 23:00 07:00 02/10/17 14:06 - 02/13/17 06:01 Intake Total 1077 ml 600 ml 6120 ml Output Total 1550 ml 850 ml 5475 ml Balance -473 ml -250 ml 645 ml Intake Oral 827 ml 600 ml 3065 ml IV Total 250 ml 3055 ml Output Urine Total 1550 ml 850 ml 5475 ml # Bowel Movements 4 0 13 Lab and Diagnostics Result Diagram: 02/12/17 1015 02/12/17 1015 Assessment & Plan This is a 76-year-old male who has history of diabetes, arthritis, asthma, hypothyroidism, GERD, hyperlipidemia, bipolar disease, hypertension presented initially yesterday with diarrhea, vomiting and abdominal pain. pt was found to have colitis, cholescystitis. pt was transferred to [facility] due to unavailability of OR at [facility]. Acute, active acute on chronic colitis, POA, probable infectious colitis on transverse, descending, sigmoid colon based on CT from [place]. Report from radiology stated this is more chronic etiology. pt was started on CFX, flagyl at [place]. pt responded well to abx although stool PCR is negative. -overall, clinically improving, has less loose stool. FOBT+, h/h remained stable -will continue CFX, flagyl for now, pt does have allergy to Levaquin -s/p IVF 125cc/hr, stopped 02/11 given hypernatremia, encouraged oral hydration. dysphagia with clear liquid, developed 02/11-, no aspiration episodes, will get s/s eval today, diet switched to honey thick for now DERICK, POA, reportedly pt doesn't have CKD at baseline, prerenal vs possible urinary retention -pt developed urinary rentention with hansen cath, will continue PVR check q4h in /out cath if PVR>250cc -improving with IVF -continue hydrate, Chronic, stable Acute encephalopathy, POA, likely septic, resolved as infection improves. suspected acute cholecysitis, POA, based on CT/US from [facility], HIDA scan 02/10 unremarkable. therefore no need for surgical intervention per surgical consult. Type II diabetes, glc in target w/o insulin, will monitor fsg qam. Arthritis, not active Asthma, seemed stable, continue albuterol prn, Hypothyroidism, continue home synthyroid GERD, continue PPI 20mg qd Hyperlipidemia, continue home statin Bipolar disease, continue Li recent detached retina, continue eye drops Stated history of temporal arteritis, seemed unlikely contributing current presentation. Hypertension, resume home meds once med rec done Vertigo hx of GIB, as above dispo:likely tomorrow SNF diet:dysphagia diet dvt ppx:SCD Full code for now contact: Germania, nagel. Son Time spent 35min Barney Lin MD Feb 13, 2017 08:12
--- NOTE | 2017-02-14 11:15 | NUR ---
SENIOR LIVING FOLLOW UP: Called and spoke with David at [facility] and this referral is currently being reviewed by his admin team. They wanted additional information regarding safe discharge plan post rehab. Patient has children and brother involved. Will faxed updated information to David when available. Updated BRANCH ACCOUNT MANAGER
--- NOTE | 2017-02-14 11:31 | PCM.PNMED ---
Subjective Date of Service Feb 14, 2017 Subjective pt remained afebrile, denied abd pain but gassy tolerated MBBS, awaits result. pt was able to void finally. pt denied having n,v Exam Vital Signs Vital Sign - Last Date Time Temp Pulse Resp B/P Pulse Ox O2 Delivery O2 Flow Rate FiO2 02/14/17 04:14 36.9 62 16 163/80 96 Room Air 02/13/17 08:13 2.00 Intake and Output 02/13/17 02/13/17 02/14/17 Cumulative From/Thru 15:00 23:00 07:00 02/10/17 14:06 - 02/14/17 06:36 Intake Total 1960 ml 500 ml 8580 ml Output Total 1900 ml 500 ml 7875 ml Balance 60 ml 0 ml 705 ml Intake Oral 1760 ml 500 ml 5325 ml IV Total 200 ml 3255 ml Output Urine Total 1600 ml 100 ml 7175 ml Urine/Stool Mix 300 ml 400 ml 700 ml # Bowel Movements 2 15 Exam NAD no JVD, MMM, no LAD RRR, nl s1, s2 no mrg CTAB, no w,c S,ND,NT,normoactive BS+ warm, no edema, pulses 2/2 IVs and Medications Medications Reviewed: Medications were reviewed in detail Lab and Diagnostics Result Diagram: 02/12/17 1015 02/14/17 0515 Assessment & Plan This is a 76-year-old male who has history of diabetes, arthritis, asthma, hypothyroidism, GERD, hyperlipidemia, bipolar disease, hypertension presented initially yesterday with diarrhea, vomiting and abdominal pain. pt was found to have colitis, cholescystitis. pt was transferred to [facility] due to unavailability of OR at [facility]. Acute, active acute on chronic colitis, POA, probable infectious colitis on transverse, descending, sigmoid colon based on CT from [place]. Report from radiology stated this is more chronic etiology. pt was started on CFX, flagyl at [place]. pt responded well to abx although stool PCR is negative. -overall, clinically improving with empiric abx tx. -will continue CFX, flagyl for now, pt does have allergy to Levaquin, likely to finish 14days course. -s/p IVF 125cc/hr, stopped 02/11 given hypernatremia, encouraged oral hydration. dysphagia with clear liquid, developed 02/11-11, it seems it's chronic problem, no aspiration episodes, -awaits barium swallow result, continue puree diet per s/s -will consider GI consult based on the result DERICK, POA, prerenal vs postobstructive, resolving with IVF, improvement of infection, -Cr close to normal range -oral hydration Chronic, stable Acute encephalopathy, POA, likely septic, resolved as infection improves. suspected acute cholecysitis, POA, based on CT/US from [facility], HIDA scan 02/10 unremarkable. therefore no need for surgical intervention per surgical consult. urinary retention, POA, likely due to indewelling for 5days.resolved Type II diabetes, glc in target w/o insulin, will monitor fsg qam. Arthritis, not active Asthma, seemed stable, continue albuterol prn, Hypothyroidism, continue home synthyroid GERD, continue PPI 20mg qd Hyperlipidemia, continue home statin Bipolar disease, continue Li recent detached retina, continue eye drops Stated history of temporal arteritis, seemed unlikely contributing current presentation. Hypertension, resume home meds once med rec done Vertigo hx of GIB, as above dispo:likely 1-2 more days, SNF diet:dysphagia diet dvt ppx:SCD Full code for now contact: Germania, friend. Son Time spent 35min Barney Lin MD Feb 14, 2017 11:28
[2017-02-14 13:57] VITALS: BP 134/74; PULSE 72; RESP 16; O2SAT 96
--- NOTE | 2017-02-14 15:42 | NUR ---
SW received a call back from APS, who states pt has screened in and case has been assigned to worker Galen Ferreira [phone]. KANWAL Juan
--- NOTE | 2017-02-14 16:06 | NUR ---
Social Work-continued d/c planning: Data:EMR reviewed. Pt is on day 4 of hospitalization for poss pancreatitis per H&P. Pt is not medically stable anticipate several more days. PT continues to see pt and recommend SNF. UR Specialist spoke with [facility] and they are still reviewing pt. [facility] wondering support system, etc. DAV provided them with updated. DAV spoke with friend Germania and provided her with update she is agreeable to plan. DAV spoke with pt's brother Uriel [phone], who states he does not have any legal DPOA or financial power of county attorney over the pt. Brother states that he is on pt's checking account in [place], but nothing up in [place]. SW asked brother if he would like to be the support person for pt and at this time, brother states he is not in a place for this and would prefer the family to do this. DAV called Son Ko [phone] and left message, providing him with the above information so he is aware because he plans to be pt's support person if Uriel was not able to do this. Paperwork in the chart. SW will continue to follow. Assessment:pt who would benefit from SNF. Plan:[facility] has been faxed. Paperwork in the chart. DAV will continue to follow. KANWAL Juan
[2017-02-14 17:27] LABS: APPEARANCE,URINE CLEAR (CLEAR,HAZY); COLOR,URINE STRAW (YELLOW); OCCULT BLOOD,URINE TRACE (NEGATIVE); PH,URINE 6.5 (5.0-8.0); UROBILINOGEN,URINE NORMAL (NORMAL)
[2017-02-14] MEDS: cefTRIAXone Inj 2,000 MG in Dextrose 5% Minibag Plus 50 ML IV SCH (18:19)
[2017-02-14 19:20] VITALS: BP 157/77; PULSE 65; RESP 17; O2SAT 97
[2017-02-14] MEDS: Ondansetron 2 mg/mL 2 mL Inj IVPUSH PRN (23:19)
[2017-02-15] MEDS: metroNIDAZOLE Inj 500 MG in IV Premix 1 EACH IV SCH ×3 (03:55→16:51)
[2017-02-15 05:10] VITALS: BP 144/78; PULSE 71; RESP 17; O2SAT 95
--- NOTE | 2017-02-15 05:29 | NUR ---
Uneventful Night: Pt rested through the night with no complaints of pain or discomfort. Denies SOB or n/v. Alert and oriented, forgetful at times. SBA and nonslip socks on for safety. Call light within reach, using appropriately. Frequent rounding. Pleasant and cooperative with care.
[2017-02-15 05:56] LABS: BASOPHILS % (AUTO) 1.7 % (0-3); EOSINOPHILS % (AUTO) 2.9 % (0-5); MONOCYTES % (AUTO) 13.5 % (4-12); Mean Corpuscular Hemoglobin 26.6 pg (27.0-35.0); Mean Corpuscular Volume 85.3 fL (81-100); NEUTROPHILS % (AUTO) 54.7 % (40-74); Platelet Count 323 bil/L (150-400)
[2017-02-15] MEDS: Pantoprazole 20 mg ER24 Tablet PO SCH (08:10)
[2017-02-15] MEDS: Heparin 5,000 Unit/mL Inj SUBQ SCH ×2 (08:10→20:25)
--- NOTE | 2017-02-15 08:31 | DRSVH ---
PROCEDURE: X-RAY BARIUM SWALLOW ESOPHAGUS ([id number]) INDICATIONS: dysphagia COMPARISON: None. FINDINGS: Function: Moderate esophageal dysmotility. No elicited gastroesophageal reflux. Morphology: Air-contrast images demonstrate normal mucosal morphology. Single contrast views show n o extrinsic mass effects, or diverticula. Small reducible hiatal hernia is present with prominent B. ring which does not allow for passage of a 13 mm caliber a barium tablet. Limited images of the sto mach demonstrate normal appearance. The attending physician was personally present in the room durin g the examination. IMPRESSION: 1. Small reducible hiatal hernia with prominent B ring not allowing for passage of a 13 mm barium tab let suggesting Schatzki's ring. Endoscopy is recommended for further evaluation. 2. Moderate esophageal dysmotility. Dictated by: Frank ASENCIO Interpreted: Hector Zamora MD on 02/13/2017 at 10:26 Transcribed by: TOBY on 02/15/2017 at 8:30 Approved by: Melanie Norman MD, PhD on 02/15/2017 at 13:11
[2017-02-15] MEDS ORDERED: Propofol 10,000 mCg/mL 20 mL Inj ONE (08:45)
--- NOTE | 2017-02-15 11:59 | NUR ---
Social Work-readiness for discharge: Data:EMR reviewed. Pt is on day 5 of hospitalization for Poss pancreatitis per H&P. Pt is medically stable for discharge later today or tomorrow. PT has seen pt and recommended SNF. Pt has been accepted at [facility]. Paperwork in the chart. SW will continue to follow. Assessment:pt who would benefit from SNF. Plan:Pt has been accepted at [facility]. Paperwork in the chart. SW will continue to follow. KANWAL Juan
--- NOTE | 2017-02-15 11:59 | NUR ---
[facility] Can accept with Dr. Cassy Rogers to follow. KANWAL Juan
[2017-02-15 13:17] VITALS: BP 148/73; PULSE 70; RESP 18; O2SAT 98
--- NOTE | 2017-02-15 13:37 | PCM.PNMED ---
Subjective Date of Service Feb 15, 2017 Subjective pt was found to have Schatzki's ring, continue to have dysphagia, scheduled to have EGD today pt denied n/v, abd pain, remained afebrile, tolerating abx Exam Vital Signs Vital Sign - Last Date Time Temp Pulse Resp B/P Pulse Ox O2 Delivery O2 Flow Rate FiO2 02/15/17 13:17 37.0 70 18 148/73 98 Room Air 02/13/17 08:13 2.00 Intake and Output 02/14/17 02/14/17 02/15/17 Cumulative From/Thru 15:00 23:00 07:00 02/10/17 14:06 - 02/15/17 05:53 Intake Total 915 ml 350 ml 9845 ml Output Total 1900 ml 1550 ml 69052 ml Balance -985 ml -1200 ml -1480 ml Intake Oral 915 ml 350 ml 6590 ml IV Total 3255 ml Output Urine Total 1900 ml 1550 ml 27286 ml Urine/Stool Mix 700 ml # Bowel Movements 2 0 17 Exam NAD no JVD, MMM, no LAD RRR, nl s1, s2 no mrg CTAB, no w,c S,ND,NT,normoactive BS+ warm, no edema, pulses 2/2 IVs and Medications Medications Reviewed: Medications were reviewed in detail Lab and Diagnostics Result Diagram: 02/15/1751302/15/17513 Assessment & Plan This is a 76-year-old male who has history of diabetes, arthritis, asthma, hypothyroidism, GERD, hyperlipidemia, bipolar disease, hypertension presented initially yesterday with diarrhea, vomiting and abdominal pain. pt was found to have colitis, cholescystitis. pt was transferred to [facility] due to unavailability of OR at [facility]. Acute, active acute on chronic colitis, POA, probable infectious colitis on transverse, descending, sigmoid colon based on CT from [place]. Report from radiology stated this is more chronic etiology. pt was started on CFX, flagyl at [place]. pt responded well to abx although stool PCR is negative. -overall, clinically improving with empiric abx tx. -will continue CFX, flagyl for now, pt does have allergy to Levaquin, likely to finish 14days course. -s/p IVF 125cc/hr, stopped 02/11 given hypernatremia, encouraged oral hydration. dysphagia with clear liquid, developed 02/11- although it seems it's chronic problem, no aspiration episodes, barium swallow showed possible Schatzki's ring -appreciate follow up , EGD today DERICK, POA, prerenal vs postobstructive, resolving with IVF, improvement of infection, -further improved, Cr close to normal range -oral hydration Chronic, stable Acute encephalopathy, POA, likely septic, resolved as infection improves. suspected acute cholecysitis, POA, based on CT/US from [facility], HIDA scan 02/10 unremarkable. therefore no need for surgical intervention per surgical consult. urinary retention, POA, likely due to indewelling for 5days.resolved Type II diabetes, glc in target w/o insulin, will monitor fsg qam. Arthritis, not active Asthma, seemed stable, continue albuterol prn, Hypothyroidism, continue home synthyroid GERD, continue PPI 20mg qd Hyperlipidemia, continue home statin Bipolar disease, continue Li recent detached retina, continue eye drops Stated history of temporal arteritis, seemed unlikely contributing current presentation. Hypertension, resume home meds once med rec done Vertigo hx of GIB, as above dispo:likely 1-2days, SNF diet:dysphagia diet dvt ppx:SCD Full code for now contact: [place]ia, friend. Son Time spent 35min Barney Lin MD Feb 15, 2017 13:37
--- NOTE | 2017-02-15 14:57 | PCM.CHPMED ---
Subjective Date of Service: Feb 15, 2017 Provider requesting consult: Barney Lin MD Primary Physician: Admitting Physician: Barney Lin MD Primary Care Physician: Cassy Rogers MD Attending Physician: Barney Lin MD Admit Status: From the Emergency Department Chief Complaint: Chief Complaint: ABDOMINAL PAIN & DIARRHEA; GI CONSULT FOR DYSPHAGIA History of Present Illness: GASTROENTEROLOGY CONSULT NOTE: Attending Physician: Oneal Eli MD Resident Physician: Cinthya Singh DO Marina Spain is a 76-year-old woman with a history of diabetes, arthritis, asthma, hypothyroidism, GERD, hyperlipidemia, bipolar disease, hypertension, GI bleed, and questionable history of temporal arteritis transferred from [facility] on 02/10 with colitis and possible pancreatitis because no OR capabilities at this time. Majority of history obtained via review of medical record secondary to patient condition. She reportedly presented to the emergency department at [facility] with a week long history of abdominal pain, diarrhea, and vomiting. While there she was noted to have rectal bleeding and liquid stool. A CT abdomen was done which showed diffuse colitis thought to chronic and of unclear etiology. She was started on ceftriaxone and flagyl and the decision made to transfer for possible surgical intervention due to persistent abdominal pain and cholelithiasis noted on abdominal ultrasound. The patient has remained afebrile, hemodynamically stable, and clinically without evidence of an acute abdomen. Symptomatically she has responded to medical therapy and is nearing her baseline. As the patient was feeling better and her diet advanced she reported dysphagia, which is likely chronic, and a barium swallow was done. GI was consulted for further evaluation and possible EGD after barium study with findings consistent with a Schatzki's ring. Review of Systems: Pertinent positives and negatives as above in HPI and otherwise negative. PMH Past Medical History Type II diabetes Arthritis Asthma Hypothyroidism GERD Hyperlipidemia Bipolar disease recent detached retina Stated history of temporal arteritis Hypertension Vertigo GI bleed . Bedside Blood Glucose: 112 Surgical History OLIMPIA /BSO Left rotator cuff repair Cataract surgery left eye Recent right eye retinal laser surgery Left rotator cuff surgery February 2016 Foot fracture repair . Home Medications Dulcolax Olopatadine 2.5 mL drops Colace 100 mg daily Zyrtec 10 mg daily when necessary Excedrin 250-250-65 one tablet when necessary Tapentadol 50 mg every 4 when necessary for pain Triamcinolone 0.1% ointment 3 times a day Albuterol 1 puff as needed Omeprazole 20 mg daily Lisinopril 5 mg daily Lovastatin 40 mg daily Levothyroxine 50 mcg Citalopram 40 mg Metformin ER 1000 mg daily at bedtime [place] carbonate 300 mg twice a day Hydroxyzine 25 mg every 4h . Allergies: Coded Allergies: Penicillins (Verified Allergy, Mild, rash, 02/10/17) levofloxacin (Verified Allergy, Mild, 02/10/17) redness/burning at injection site sulfamethoxazole (Verified Allergy, Mild, rash, 02/10/17) trimethoprim (Verified Allergy, Mild, rash, 02/10/17) bupivacaine (Verified Allergy, Unknown, 02/10/17) lidocaine (Verified Allergy, Unknown, 02/10/17) Advised by surgeon not to use Social History Hx Alcohol Use: NoHx Substance Use: NoHx Tobacco Use: No Exam Vital Signs Vital Sign - Last Date Time Temp Pulse Resp B/P Pulse Ox O2 Delivery O2 Flow Rate FiO2 02/15/17 08:19 Supplement Oxygen 02/15/17 05:10 36.8 71 17 144/78 95 02/13/17 08:13 2.00 Intake and Output 02/14/17 02/14/17 02/15/17 Cumulative From/Thru 15:00 23:00 07:00 02/10/17 14:06 - 02/15/17 05:53 Intake Total 915 ml 350 ml 9845 ml Output Total 1900 ml 1550 ml 66267 ml Balance -985 ml -1200 ml -1480 ml Intake Oral 915 ml 350 ml 6590 ml IV Total 3255 ml Output Urine Total 1900 ml 1550 ml 38601 ml Urine/Stool Mix 700 ml # Bowel Movements 2 0 17 General: Alert, Cooperative Eyes: Scleral Anicteric Mouth: Mucous Membr Moist/[place] Chest & Lungs: Clear to auscultation & percussion Cardiovascular: Regular Rate/Rhythm, No Murmurs/Rubs/Gallops Abdomen: Non-tender, Non-distended, No masses, Normoactive bowel tones Extremities: No cyanosis/clubbing/edma bilat Lab and Diagnostics Labs Laboratory Tests Test 02/14/17 17:01 02/15/17 05:14 Urine Color Straw (YELLOW) Urine Appearance Clear (CLEAR,HAZY) Urine pH 6.5 (5.0-8.0) Urine Specific [place] 1.005 (1.003-1.035) Urine Protein Negativemg/dL (NEG,TRACE) Urine Glucose (UA) Negativemg/dL (NEGATIVE) Urine Ketones Negativemg/dL (NEGATIVE) Urine Occult Blood Trace (NEGATIVE) Urine Nitrite Negative (NEGATIVE) Urine Bilirubin Negative (NEGATIVE) Urine Urobilinogen Normalmg/dL (NORMAL) Urine Leukocyte Esterase Negative (NEGATIVE) Urine RBC 0-2/hpf (0-2) Urine WBC 0-5/hpf (0-5) Urine Epithelial Cells Moderate/hpf (NONE-MOD) Urine Crystals None seen (NONE SEEN) Urine Bacteria None/hpf (NONE-FEW) Urine Hyaline Casts None/lpf (NONE) Urine Granular Casts None seen (NONE SEEN) Urine Waxy Casts None seen (NONE SEEN) Urine Red Blood Cell Casts None seen (NONE SEEN) Urine White Blood Cell Casts None seen (NONE SEEN) Urine Mucus None seen (None Seen) Urine Trichomonas None seen (NONE SEEN) Urine Yeast None (NONE SEEN) Urinalysis Comment None Urine Culture Reflexed Not indicated White Blood Count 6.3th/mm3 (3.8-10.1) Red Blood Count 3.61mil/mm3 (3.90-5.20) Hemoglobin 9.6g/dL (12.0-15.6) Hematocrit 30.8% (35.0-46.0) Mean Corpuscular Volume 85.3fL (81-100) Mean Corpuscular Hemoglobin 26.6pg (27.0-35.0) Mean Corpuscular Hemoglobin Concent 31.2% (32.0-37.0) Red Cell Distribution Width 15.0% (12.3-15.4) Platelet Count 323bil/L (150-400) Neutrophils (%) (Auto) 54.7% (40-74) Lymphocytes (%) (Auto) 25.1% (14-46) Monocytes (%) (Auto) 13.5% (4-12) Eosinophils (%) (Auto) 2.9% (0-5) Basophils (%) (Auto) 1.7% (0-3) Sodium Level 147mEq/L (134-144) Potassium Level 3.8mEq/L (3.5-5.2) Chloride Level 115mEq/L (97-108) Carbon Dioxide Level 21mmol/L (18-29) Blood Urea Nitrogen 7mg/dL (8-27) Creatinine 0.97mg/dL (0.57-1.00) Estimat Glomerular Filtration Rate 80mL/min (>59) Glucose Level 112mg/dL (60-99) Calcium Level 8.4mg/dL (8.5-10.1) Total Bilirubin 0.2mg/dL (0.0-1.2) Aspartate Amino Transf (AST/SGOT) 19U/L (0-50) Alanine Aminotransferase (ALT/SGPT) 8U/L (0-32) Alkaline Phosphatase 91U/L (25-165) Total Protein 5.5g/dL (6.4-8.4) Albumin 3.1g/dL (3.4-5.0) Microbiology 02/11/17 Stool PCR - Negative Result Diagram: 02/15/1751302/15/17513 Additional Diagnostics: 02/13/17 - X-RAY BARIUM SWALLOW ESOPHAGUS IMPRESSION: 1. Small reducible hiatal hernia with prominent B ring not allowing for passage of a 13 mm barium tablet suggesting Schatzki's ring. Endoscopy is recommended for further evaluation. 2. Moderate esophageal dysmotility. Interpreted: Hector Zamora MD on 02/13/2017 at 10:26 Approved by: Melanie Norman MD, PhD on 02/15/2017 at 13:11 02/10/17 - NM HIDA SCAN WITHOUT CCK IMPRESSION: There is uptake of radiotracer within the gallbladder lumen, therefore reassuring for no acute cholecystitis at this time. Approved by: Shad Powell M.D. on 02/10/2017 at 20:40 . Assessment & Plan Assessment 76-year-old woman with a history of diabetes, arthritis, asthma, hypothyroidism , GERD, hyperlipidemia, bipolar disease, hypertension, GI bleed, and questionable history of temporal arteritis transferred from [facility] on with colitis, which is responding to medical therapy. GI was consulted for dysphagia and possible EGD after barium study with findings consistent with a Schatzki's ring. Dysphagia likely secondary to Schatzki's ring and moderate esophageal motility noted on barium swallow study. - Patient transferred due to concerns regarding the potential for surgical intervention as [facility]'s OR was not functioning at that time. Clinically she is responding to medical therapy and without signs of infection. - History of GERD and prior GI bleed, no signs of active bleeding. - Barium swallow 02/13- showed a small reducible hiatal hernia with prominent B ring not allowing for passage of a 13 mm barium tablet suggesting Schatzki's ring. RECOMMENDATIONS: - EGD planned for today - Continue PPI 20mg qd - Antibiotics per hospitalist Additional problems managed by primary hospitalist: -Acute encephalopathy -Acute on chronic colitis -Concern for acute cholecystitis -Acute Kidney Injury -Type II diabetes -Asthma -Hypothyroidism -Hyperlipidemia -Bipolar disease -Hypertension . I examined the patient with the resident and agree with above. Problems: Cinthya Singh DO Feb 15, 2017 11:37 Oneal Eli MD Feb 16, 2017 09:31
[2017-02-15] MEDS: cefTRIAXone Inj 2,000 MG in Dextrose 5% Minibag Plus 50 ML IV SCH (15:37)
[2017-02-15] MEDS ORDERED: Lactated Ringer's 1,000 ML IV ONE (17:22)
--- NOTE | 2017-02-15 17:34 | PCM.HPANE ---
Patient Data Surgeon Admitting Provider:Barney Lin MD Attending Provider:Barney Lin MD Primary Care Physician:Cassy Rogers MD Other Provider: Reason for Visit Poss Pancreatitis POSS PANCREATITIS Ht/WT & BMI Height (Feet): 5 Height (Inches): 10.00 Weight (Kilograms): 80.700 Body Mass Index 25.47 Allergies Coded Allergies: Penicillins (Verified Allergy, Mild, rash, 02/10/17) levofloxacin (Verified Allergy, Mild, 02/10/17) redness/burning at injection site sulfamethoxazole (Verified Allergy, Mild, rash, 02/10/17) trimethoprim (Verified Allergy, Mild, rash, 02/10/17) bupivacaine (Verified Allergy, Unknown, 02/10/17) lidocaine (Verified Allergy, Unknown, 02/10/17) Advised by surgeon not to use Past Anesthesia History Anesthesia History: Denies:: Anesthesia Reactions Diabetes History Hx Diabetes?: Yes Current Bedside Blood Glucose: 108 MRSA MRSA: No Medications Hypertension Medication: Yes Home Meds Incl Beta Marleen: No Reported Medications Triamcinolone Acet (Triamcinolone Acetonide Ointment)1 Applic/0.25 Gm Oint60 Applic TOP TID #60 GM Ref 0 02/10/17 Tapentadol (Nucynta)50 Mg [id number] Mg PO Q4hrs PRN For Pain 02/10/17 Omeprazole 20 Mg Capsule.dr20 Mg PO DAILY Ref 0 02/10/17 Olopatadine HCl (Pataday)2.5 Ml Drops2.5 Ml OP 02/10/17 Metformin ER (Glucophage XR)500 Mg Tablet1,000 Mg PO HS Ref 0 02/10/17 Lovastatin 40 Mg Hkqasu25 Mg PO HS #30 TABLET Ref 0 02/10/17 [place] Carbonate 300 Mg Sgj390 Mg PO BID 02/10/17 Lisinopril 5 Mg Tablet5 Mg PO DAILY #30 TABLET Ref 0 02/10/17 Levothyroxine 50 Mcg Rhvblo82 Mcg PO DAILY Ref 0 02/10/17 Insulin Aspart (NovoLOG U-100 Pen)100 Unit/Ml Insuln.pen Subq Achs 02/10/17 Hydroxyzine Pamoate (Vistaril)25 Mg Sqqmzef29 Mg PO Q4hrs PRN For Itching Ref 0 02/10/17 Docusate Sodium (Colace)100 Mg Dmrcbnp511 Mg PO DAILY PRN For Constipation Ref 0 02/10/17 Citalopram Hydrobromide (Celexa)40 Mg Dxjhzl08 Mg PO DAILY Ref 0 02/10/17 Cetirizine HCl (Zyrtec)10 Mg Utntznp78 Mg PO DAILY PRN allergies #30 CAPSULE Ref 0 02/10/17 Bisacodyl (Dulcolax)5 Mg Tablet.dr5 Mg PO DAILY PRN For Constipation Ref 0 02/10/17 Albuterol Sulfate (Ventolin HFA Inhaler)200 Puff/18 Gm Inhaler1-2 Puff INH Q4 PRN For Wheezing #1 INHALER Ref 0 02/10/17 History History of ENT Problems?: Yes HEENT History: Positive for:: Dysphagia Denies:: Cataracts Glaucoma Sinus Problem Denture Type: None Teeth Condition: Within Normal Limits Other HEENT Pertinent History: R eye prosthetic Hx of Heart Problems?: Yes Cardiovascular History: Positive for:: Edema Hypertension Denies:: Cardiac Surgery Chest Pain Congestive Heart Failure Heart Murmur Irregular Heartbeat Pacemaker Thrombophlebitis Hx of Respiratory Problem?: Yes Respiratory History: Positive for:: Asthma Dyspnea Hemoptysis Pneumonia Denies:: COPD Chest Surgery Emphysema Tuberculosis Hx Neurologic Problems?: Yes Neurological History: Positive for:: Dementia Dizziness Headaches Seizures Denies:: Alzheimer's Disease CVA Parkinson's Disease Hx of GI Problems?: Yes Hx of Problems?: No Genitourinary History: Denies:: HX of Hemodialysis Kidney Stones Urinary Tract Infection HX of Peritoneal Dialysis: No Female Hx: Denies:: Currently Endometriosis Pelvic Inflammatory Problems with Breasts? Hx Musculoskeletal Problems?: Yes Musculoskeletal History: Denies:: Back Injury Joint Replacement Musculoskeletal Trauma Hx of Psycho/Social Problems?: Yes Psycho Social History: Positive for:: Bipolar Disorder Denies:: Anxiety Hx Depression Suicide Attempt Hx Surgeries?: Yes (hysterectomy) Other History: Positive for:: Thyroid Disease Denies:: Cancer Hospitalization History Blood Transfusions: Denies:: Accept Blood Products? Blood Transfusions Hx Diabetes: YesBedside Blood Glucose: 108 Other Pertinent History: Type II diabetes, Arthritis. Asthma, Hypothyroidism, GERD, Hyperlipidemia, Bipolar disease, Recent detached retina, Stated history of temporal arteritis, Hypertension, Vertigo, GI bleed Hx Alcohol Use: NoHx Substance Use: No Stop/Bang Treated for Sleep Apnea?: No Do You Have a CPAP Machine?: No S-Snoring: Do You Snore Loudly: No T-Tired: feel tired, fatigued: Yes O-Obsered: Observed not breath: No P-Blood Pressure: treated: Yes B- Body Mass Index > 35 kg/m2: No A- Age over 50: Yes N- Neck Large Circumference: No G- Gender Male: No GEMA Total Score: 2 Risk Assessment Category Category 1A: Patient has history of documented sleep apnea, and HAS NOT received any narcotic, sedative or anesthesia administration during this stay. Category 1B: Patient has history of documented sleep apnea, and HAS received any narcotic , sedative or anesthesia administration during this stay Category 2: Patient has SUSPECTED Obstructive Sleep Apnea, and HAS received any narcotic , sedative or anesthesia administration during this stay. Category 3: Patient has SUSPECTED Obstructive Sleep Apnea and HAS NOT received narcotic, sedative or anesthesia administration during this stay. Category 4: Outpatient in Procedural Areas with known sleep apnea or who screen positive for High Risk via the STOP/BANG questionnaire. Exam Exam Vital Signs Vital Signs Date Time Temp Pulse Resp B/P Pulse Ox O2 Delivery O2 Flow Rate FiO2 02/15/17 13:17 37.0 70 18 148/73 98 Room Air 02/15/17 11:33 Room Air General Appearance: Alert, Cooperative HEENT/AIRWAY: MP 2 Lungs: Clear to Auscultation, Normal Air Movement Heart: Regular Rate/Rhythm Meds/Labs/Diagnostics Bedside Blood Glucose: 108 Labs Test 02/10/17 14:15 02/11/17 05:40 02/12/17 05:30 02/14/17 05:15 Band Neutrophils % 11% (1-5) Hemoglobin A1c 6.0% (4.8-5.6) Hold Purple Top Tube Received (Received) [place] Level 0.7mEq/L (0.5-1.5) Magnesium Level 1.8mg/dL (1.6-2.6) Procalcitonin 0.66ng/mL (0.00-0.08) Test 02/14/17 17:01 02/15/17 05:14 Urine Color Straw (YELLOW) Urine Appearance Clear (CLEAR,HAZY) Urine pH 6.5 (5.0-8.0) Urine Specific [place] 1.005 (1.003-1.035) Urine Protein Negativemg/dL (NEG,TRACE) Urine Glucose (UA) Negativemg/dL (NEGATIVE) Urine Ketones Negativemg/dL (NEGATIVE) Urine Occult Blood Trace (NEGATIVE) Urine Nitrite Negative (NEGATIVE) Urine Bilirubin Negative (NEGATIVE) Urine Urobilinogen Normalmg/dL (NORMAL) Urine Leukocyte Esterase Negative (NEGATIVE) Urine RBC 0-2/hpf (0-2) Urine WBC 0-5/hpf (0-5) Urine Epithelial Cells Moderate/hpf (NONE-MOD) Urine Crystals None seen (NONE SEEN) Urine Bacteria None/hpf (NONE-FEW) Urine Hyaline Casts None/lpf (NONE) Urine Granular Casts None seen (NONE SEEN) Urine Waxy Casts None seen (NONE SEEN) Urine Red Blood Cell Casts None seen (NONE SEEN) Urine White Blood Cell Casts None seen (NONE SEEN) Urine Mucus None seen (None Seen) Urine Trichomonas None seen (NONE SEEN) Urine Yeast None (NONE SEEN) Urinalysis Comment None Urine Culture Reflexed Not indicated White Blood Count 6.3th/mm3 (3.8-10.1) Red Blood Count 3.61mil/mm3 (3.90-5.20) Hemoglobin 9.6g/dL (12.0-15.6) Hematocrit 30.8% (35.0-46.0) Mean Corpuscular Volume 85.3fL (81-100) Mean Corpuscular Hemoglobin 26.6pg (27.0-35.0) Mean Corpuscular Hemoglobin Concent 31.2% (32.0-37.0) Red Cell Distribution Width 15.0% (12.3-15.4) Platelet Count 323bil/L (150-400) Neutrophils (%) (Auto) 54.7% (40-74) Lymphocytes (%) (Auto) 25.1% (14-46) Monocytes (%) (Auto) 13.5% (4-12) Eosinophils (%) (Auto) 2.9% (0-5) Basophils (%) (Auto) 1.7% (0-3) Sodium Level 147mEq/L (134-144) Potassium Level 3.8mEq/L (3.5-5.2) Chloride Level 115mEq/L (97-108) Carbon Dioxide Level 21mmol/L (18-29) Blood Urea Nitrogen 7mg/dL (8-27) Creatinine 0.97mg/dL (0.57-1.00) Estimat Glomerular Filtration Rate 80mL/min (>59) Glucose Level 112mg/dL (60-99) Calcium Level 8.4mg/dL (8.5-10.1) Total Bilirubin 0.2mg/dL (0.0-1.2) Aspartate Amino Transf (AST/SGOT) 19U/L (0-50) Alanine Aminotransferase (ALT/SGPT) 8U/L (0-32) Alkaline Phosphatase 91U/L (25-165) Total Protein 5.5g/dL (6.4-8.4) Albumin 3.1g/dL (3.4-5.0) Plan Impression Patient chart reviewed, patient interviewed and anesthestic plan with risks, benefits, and alternatives discussed, and informed consent obtained. NPO per Anesth. Guidelines: Yes ASA Physical Status: ASA3 Severe Disease Anesthetic Plan: MAC Bene/Risks/Altern/Consents: Yes HP Complete Prior to Induction: Yes Parviz Miranda MD Feb 15, 2017 17:34
[2017-02-15 17:38] VITALS: BP 153/85; PULSE 64; RESP 16; O2SAT 97
--- NOTE | 2017-02-15 17:55 | NUR ---
OFF FLOOR Pt off floor for EGD at 1736.
--- NOTE | 2017-02-15 18:09 | PCM.ANEP1 ---
Post Anesthesia PACU Phase 1 Assessment Vital Signs see anesthesia record Vital Signs Date Time Temp Pulse Resp B/P Pulse Ox O2 Delivery O2 Flow Rate FiO2 02/15/17 17:38 36.3 64 16 153/85 97 Room Air 02/15/17 13:17 37.0 70 18 148/73 98 Room Air 02/15/17 11:33 Room Air Anesthetic Administered: MAC Level of Alertness: Sleepy, easy to arouse HERNÁNDEZ's with Equal Strength: Yes Pain: No Pain Scale Score: 10 Nausea or Vomiting: No CV Function & Hydration Stable: Yes Airway Device: Oxygen Delivery: Room Air Lungs: Normal Air Movement PACU Phase 2 Assessment Complications: No Follow up Care: No Patient Instructions Provided: N/A Parviz Miranda MD Feb 15, 2017 18:08
--- NOTE | 2017-02-15 18:09 | PCM.ENDEGD ---
EGD Date of Service: Feb 15, 2017 Physician Oneal Eli MD Pre Procedure Diagnosis: Dysphagia Post Procedure Dx & Findings: Severe erosive esophagitis Procedure Esophagogastroduodenoscopy PROCEDURE IN DETAIL: Sedation by anesthesiology After proper sedation, Olympus video endoscope was inserted into patient's mouth and esophagus was successfully intubated. Scope introduced esophagus. Esophagus showed normal shiny whitish mucosa consistent with squamous cell component. Starting at 30 cm from the incisors, we started seeing superficial erosions and inflammation on the ulceration. This progressively worsened as we got near today Z line at 40 cm. The entire Z line was covered with exudate redness and friability. Severe erosive esophagitis noted. Scope further advanced to the stomach. Stomach showed normal shiny mucosa with normal appearing rugae folds without any ulcer mass erosion. However there was a significant deformity of the antrum. There appears to be a postsurgical scar near the antrum. Cardia fundus body antrum pylorus were all visualized. Retroflexion was done. Stomach was easily inflated and deflatable using air. Scope further advanced to the distal duodenum. Duodenum revealed normal villous structures with normal appearing folds without any mass ulcer erosion. Impression Severe erosive esophagitis. Most likely cause of her dysphagia. Antral deformity probably from postsurgical changes. Recommendation Aggressive IV PPI Clear liquid diet. Presedation Assessment Risks and Benefits Informed consent was obtained from the patient after all risks and benefits including but not limited to drug reaction, infection, pain, bleeding, perforation, as well as alternatives were discussed. Patient monitoring Continuous pulse oximetry, cardiac monitoring, blood pressure monitoring, IV access, and oxygen at 2L per nasal cannula. Complications There were no periprocedural complications identified. Post Procedure Plan Post Procedure Recommendations 1. Restrict activities today. 2. Resume normal activities in the morning. 3. Resume medications. 4. GERD behavioral modification: - Avoid fatty, acidic, spicy, large meals - Do not lie down after meals - Do not eat or drink anything for at least 2 1/2 hours before going to bed at night - Discontinue tobacco and alcohol - Decrease or avoid caffeine - Avoid chocolate and mints - Decrease weight - Avoid aspirin and non steroidal anti-inflammatory agents (NSAID) such as Aleve, Advil, Mobic, Naproxen, Ibuprofen, etc 5. Add proton pump inhibitor. Take 30 minutes before 1st meal of the day. 6. Patient informed of normal post procedure side effects as bloating, drowsiness, blood streaking in the stool 7. If gastric biopsy reveal H.pylori, continue with appropriate treatment 8. If small bowel biopsy reveals celiac, continue with appropriate treatment 9. Please don't hesitate to call me with any questions Oneal Eli MD Feb 15, 2017 18:09
[2017-02-15 18:10] VITALS: BP 140/71; PULSE 89; RESP 16; O2SAT 96
[2017-02-15 18:14] VITALS: BP 147/71; PULSE 77; RESP 16; O2SAT 98
[2017-02-15 20:32] VITALS: BP 152/64; PULSE 83; O2SAT 97
[2017-02-16] MEDS: metroNIDAZOLE Inj 500 MG in IV Premix 1 EACH IV SCH ×3 (00:45→16:38)
--- NOTE | 2017-02-16 01:31 | NUR ---
Severe Headache Pt reports of having severe headache, 10/10. Administered Tylenol but was ineffective. Administered Morphine. Continuing to monitor for effects.
[2017-02-16 04:43] VITALS: BP 125/75; PULSE 65; RESP 18; O2SAT 97
[2017-02-16 05:39] LABS: Mean Corpuscular Hemoglobin 26.5 pg (27.0-35.0); Mean Corpuscular Volume 83.2 fL (81-100); Platelet Count 295 bil/L (150-400)
[2017-02-16 06:02] LABS: Magnesium 1.8 mg/dL (1.6-2.6)
[2017-02-16 06:11] LABS: BASOPHILS % (AUTO) 0 % (0-3); EOSINOPHILS % (AUTO) 1 % (0-5); MONOCYTES % (AUTO) 4 % (4-12); NEUTROPHILS % (AUTO) 68 % (40-74)
[2017-02-16] MEDS: Heparin 5,000 Unit/mL Inj SUBQ SCH ×2 (07:24→20:22)
[2017-02-16] MEDS: Pantoprazole 4 mg/mL 10 mL Inj IVPUSH SCH (07:45)
--- NOTE | 2017-02-16 10:48 | NUR ---
Social Work Discharge planning note: DCP: Reviewed chart. Spoke with MD and multidisciplinary team in AM rounds. Pt. not expected to d/c today. MD and team met with pt. to notify her that discharge will not be today. Current d/c plan is for pt. to go to [facility] in [place]. Pt.'s segment block layer will follow (Dr. Cassy Rogers). BLOOD BANK TECHNOLOGIST received phone call from Alice from admit at [facility] ph# [phone] she confirms that they can accept this patient over the weekend if she discharges. Alice also reports that they can provide transport. P: [facility] when medically stable. Call admit at facility cell# [phone] when pt. is medically cleared to discharge. KANWAL Love
--- NOTE | 2017-02-16 11:04 | PCM.PNMED ---
Subjective Date of Service Feb 16, 2017 Subjective pt still in dysphagia, EGD yesterday showed severe erosive esphagitis, started PPI iv tolerating clears denied abd pain, no n/v Exam Vital Signs Vital Sign - Last Date Time Temp Pulse Resp B/P Pulse Ox O2 Delivery O2 Flow Rate FiO2 02/16/17 04:43 36.8 65 18 125/75 97 Room Air 02/15/17 18:10 2 Intake and Output 02/15/17 02/15/17 02/16/17 Cumulative From/Thru 15:00 23:00 07:00 02/10/17 14:06 - 02/16/17 04:43 Intake Total 263 ml 1150 ml 16357 ml Output Total 1250 ml 1270 ml 45707 ml Balance -987 ml -120 ml -2587 ml Intake Oral 0 ml 1150 ml 7740 ml IV Total 263 ml 3518 ml Output Urine Total 1250 ml 1270 ml 07468 ml Urine/Stool Mix 700 ml # Bowel Movements 2 0 19 Exam NAD no JVD, MMM, no LAD RRR, nl s1, s2 no mrg CTAB, no w,c S,ND,NT,normoactive BS+ warm, no edema, pulses 2/2 IVs and Medications Medications Reviewed: Medications were reviewed in detail Lab and Diagnostics Result Diagram: 02/16/1752902/16/17 0530 Assessment & Plan This is a 76-year-old male who has history of diabetes, arthritis, asthma, hypothyroidism, GERD, hyperlipidemia, bipolar disease, hypertension presented initially yesterday with diarrhea, vomiting and abdominal pain. pt was found to have colitis, cholescystitis. pt was transferred to [facility] due to unavailability of OR at [facility]. Acute, active acute on chronic colitis, POA, probable infectious colitis on transverse, descending, sigmoid colon based on CT from [place]. Report from radiology stated this is more chronic etiology. pt was started on CFX, flagyl at [place]. pt responded well to abx although stool PCR is negative. -overall, clinically improving with empiric abx tx. -will continue CFX, flagyl iv for now, pt does have allergy to Levaquin, dysphagia, likely to finish 14days course. -s/p IVF 125cc/hr, stopped 02/11 given hypernatremia, encouraged oral hydration. dysphagia with clear liquid, developed 02/11- although it seems it's chronic problem given hx of GERD, no aspiration episodes, barium swallow showed possible Schatzki's ring. EGD 02/15 showed severe erosive esophagitis -appreciate follow up -increased PPI 20mg qd to PPI iv 40mg qd today, switch to po when appropriate Chronic, stable Acute encephalopathy, POA, likely septic, resolved as infection improves. suspected acute cholecysitis, POA, based on CT/US from [facility], HIDA scan 02/10 unremarkable. therefore no need for surgical intervention per surgical consult. urinary retention, POA, likely due to indewelling for 5days.resolved DERICK, POA, prerenal vs postobstructive, resolving with IVF, improvement of infection, resolved with IVF -contnue to encourage oral hydration Type II diabetes, glc in target w/o insulin, will monitor fsg qam. Arthritis, not active Asthma, seemed stable, continue albuterol prn, Hypothyroidism, continue home synthyroid GERD, continue PPI as above Hyperlipidemia, continue home statin Bipolar disease, continue Li recent detached retina, continue eye drops Stated history of temporal arteritis, seemed unlikely contributing current presentation. Hypertension, resume home meds once med rec done Vertigo hx of GIB, as above dispo:tomorrow SNF diet:dysphagia diet dvt ppx:SCD Full code for now contact: [place], friend. Son Time spent 35min Barney Lin MD Feb 16, 2017 10:33
[2017-02-16 13:59] VITALS: BP 127/76; PULSE 73; RESP 18; O2SAT 98
--- NOTE | 2017-02-16 14:17 | NUR ---
NUTRITION FOLLOW UP: ASSESS: 76 YO female admitted for acute on chronic colitis, EGD showing severe esophagitis, pt started on PPI, diet modified to clears with dysphagia/esophagitis. Bedside rounding completed on pt today, discussed diet/modifications with MD ANAT to advance diet back to Puree pending pt established tolerance with clears. Minimal po intake x 6 days. PMHx: Diabetes type II, arthritis, asthma, hypothyroidism, GERD, hyperlipidemia, bipolar, disease, HTN, GI bleed, vertigo. LABS: Reviewed. Alb 3.1, Glu 102, Ca 8.4 MEDS: Reviewed. GI: BM x 2 02/15 CURRENT WT: 80.7 kg. DIET:Clear Liquid. PO 10-25% x 6d of puree/clears EST. NEEDS: 0354-4913 kcals (25-30 kcals/kg BW), 95-120 g protein (1.2-1.5 g/kg BW) NUTRITION DIAGNOSIS: 1.) Chewing / Swallowing difficulties related to delayed swallow as evidenced by current need for mechanically altered diet texture, ST following---PERSISTS. 2.) Inadequate oral intake related to decreased mentation and altered GI function as evidenced by po intake of 0-25% of meals x 6d - PERSISTS. NUTRITION INTERVENTION: 1.) Continue to advance diet as able per ST recommendations/MD advancement. 2.) Consider potential nutrition support pending pt ability to tolerate po intake/diet advancement with minimal po intake x 6d. MONITOR / EVAL: PO intake, labs, GI / nutritional status. Follow per high nutritional risk guidelines.
[2017-02-16] MEDS: cefTRIAXone Inj 2,000 MG in Dextrose 5% Minibag Plus 50 ML IV SCH (14:48)
[2017-02-16 20:10] VITALS: BP 145/82; PULSE 74; RESP 18; O2SAT 97
[2017-02-16] MEDS ORDERED: 0.9% Sodium Chloride 250 ML ONE (23:59)
[2017-02-17] MEDS: metroNIDAZOLE Inj 500 MG in IV Premix 1 EACH IV SCH ×2 (00:04→08:18)
--- NOTE | 2017-02-17 04:11 | NUR ---
Headache Patient reported 8-9/10 headache at beginning of shift. Tylenol administered, slightly effective. Warm washcloth to head increased comfort. Patient reported pain decreased to 6/10, tolerable. Patient reported she normally takes Excedrin at home. Continuing to monitor.
[2017-02-17 05:48] VITALS: BP 150/74; PULSE 80; RESP 18; O2SAT 96
--- NOTE | 2017-02-17 07:26 | PCM.DIMED ---
Discharge Instructions Date of Service Feb 17, 2017 Dates of Hospitalization Feb 10, 2017 at 13:38 Discharge Diagnosis Discharge Diagnosis Severe erosive esophagitis Diet Discharge Diet: Diabetic, Other (Soft, advance textures as tolerated) Activity Discharge Activity: No restrictions, Other (as per physical therapy at SNF) Patient Instructions Follow-up with PCP in: 2 weeks Additional Information continue daily physical therapy at SNF Jennifer Rebolledo MD Feb 17, 2017 07:26
[2017-02-17] MEDS ORDERED: Acetaminophen PO (07:30)
[2017-02-17] MEDS ORDERED: OMEP20CA11 PO (07:30)
--- NOTE | 2017-02-17 07:39 | PCM.DC.MED ---
Discharge Summary Date of Service Feb 17, 2017 Dates of Hospitalization Date of Hospital Admission Feb 10, 2017 at 13:38 Date of Discharge: Feb 17, 2017 Providers: Admitting Physician: Barney Lin MD Primary Care Physician: Cassy Rogers MD Attending Physician: Claude Moreno MD Diagnosis at Time of Discharge Diagnosis at Time of Discharge Severe erosive esophagitis cholelithiasis Nonspecific colitis Acute encephalopathy DERICK Urinary retention Brief History GASTROENTEROLOGY CONSULT NOTE: Attending Physician: Oneal Eli MD Resident Physician: Cinthya Singh DO Marina Spain is a 76-year-old woman with a history of diabetes, arthritis, asthma, hypothyroidism, GERD, hyperlipidemia, bipolar disease, hypertension, GI bleed, and questionable history of temporal arteritis transferred from [facility] on 02/10 with colitis and possible pancreatitis because no OR capabilities at this time. Majority of history obtained via review of medical record secondary to patient condition. She reportedly presented to the emergency department at [facility] with a week long history of abdominal pain, diarrhea, and vomiting. While there she was noted to have rectal bleeding and liquid stool. A CT abdomen was done which showed diffuse colitis thought to chronic and of unclear etiology. She was started on ceftriaxone and flagyl and the decision made to transfer for possible surgical intervention due to persistent abdominal pain and cholelithiasis noted on abdominal ultrasound. The patient has remained afebrile, hemodynamically stable, and clinically without evidence of an acute abdomen. Symptomatically she has responded to medical therapy and is nearing her baseline. As the patient was feeling better and her diet advanced she reported dysphagia, which is likely chronic, and a barium swallow was done. GI was consulted for further evaluation and possible EGD after barium study with findings consistent with a Schatzki's ring. Hospital Course This is a 76-year-old male who has history of diabetes, arthritis, asthma, hypothyroidism, GERD, hyperlipidemia, bipolar disease, hypertension presented initially yesterday with diarrhea, vomiting and abdominal pain. pt was found to have colitis, cholescystitis. pt was transferred to [facility] due to unavailability of OR at [facility]. Acute, active acute on chronic colitis, POA, probable infectious colitis on transverse, descending, sigmoid colon based on CT from [place]. Report from radiology stated this is more chronic etiology. pt was started on CFX, flagyl at [place]. pt responded well to abx although stool PCR is negative. -overall, clinically improved with empiric abx tx. -received CFX, flagyl iv through hospital stay (and at [facility]) which should be sufficient, olivia given no infectious etiology documented. -s/p IVF 125cc/hr, stopped 02/11 given hypernatremia, encouraged oral hydration. dysphagia with clear liquid, developed 02/11- although it seems it's chronic problem given hx of GERD, no aspiration episodes, -barium swallow showed possible Schatzki's ring. -EGD 02/15 showed severe erosive esophagitis -increased PPI 20mg qd to PPI iv 40mg qd after EGD -at discharge will increase her usual Prilosec daily to twice a day Acute encephalopathy, POA, likely septic, resolved as infection improves. suspected acute cholecysitis, POA, based on CT/US from [facility], HIDA scan 02/10 unremarkable. therefore no need for surgical intervention per surgical consult. urinary retention, POA, likely due to indewelling for 5days.resolved DERICK, POA, prerenal vs postobstructive, resolved with IVF, improvement of infection, resolved with IVF -contnue to encourage oral hydration Chronic, stable Type II diabetes, glc in target w/o insulin, resume metformin at discharge Arthritis, not active Asthma, seemed stable, continue albuterol prn, Hypothyroidism, continue home synthyroid GERD, continue PPI as above (increased dose) Hyperlipidemia, continue home statin Bipolar disease, continue Li recent detached retina, continue eye drops Stated history of temporal arteritis, seemed unlikely contributing current presentation. Hypertension, resume home meds Vertigo hx of GIB, as above Exam Vital Signs (Last) Date Time Temp Pulse Resp B/P Pulse Ox O2 Delivery O2 Flow Rate FiO2 02/17/17 05:48 36.0 80 18 150/74 96 Room Air 02/15/17 18:10 2 Exam General: Alert and oriented, still complains of pain with swallowing but able to take in oral fluids well Heart: Regular Lungs: Clear Abdomen: Soft, non-tender Extremities: No pedal edema Test 02/11/17 05:40 02/12/17 05:30 02/14/17 05:15 02/14/17 17:01 Hemoglobin A1c 6.0% (4.8-5.6) Hold Purple Top Tube Received (Received) [employer] Level 0.7mEq/L (0.5-1.5) Procalcitonin 0.66ng/mL (0.00-0.08) Urine Color Straw (YELLOW) Urine Appearance Clear (CLEAR,HAZY) Urine pH 6.5 (5.0-8.0) Urine Specific [place] 1.005 (1.003-1.035) Urine Protein Negativemg/dL (NEG,TRACE) Urine Glucose (UA) Negativemg/dL (NEGATIVE) Urine Ketones Negativemg/dL (NEGATIVE) Urine Occult Blood Trace (NEGATIVE) Urine Nitrite Negative (NEGATIVE) Urine Bilirubin Negative (NEGATIVE) Urine Urobilinogen Normalmg/dL (NORMAL) Urine Leukocyte Esterase Negative (NEGATIVE) Urine RBC 0-2/hpf (0-2) Urine WBC 0-5/hpf (0-5) Urine Epithelial Cells Moderate/hpf (NONE-MOD) Urine Crystals None seen (NONE SEEN) Urine Bacteria None/hpf (NONE-FEW) Urine Hyaline Casts None/lpf (NONE) Urine Granular Casts None seen (NONE SEEN) Urine Waxy Casts None seen (NONE SEEN) Urine Red Blood Cell Casts None seen (NONE SEEN) Urine White Blood Cell Casts None seen (NONE SEEN) Urine Mucus None seen (None Seen) Urine Trichomonas None seen (NONE SEEN) Urine Yeast None (NONE SEEN) Urinalysis Comment None Urine Culture Reflexed Not indicated Test 02/16/17 05:30 White Blood Count 9.6th/mm3 (3.8-10.1) Red Blood Count 3.58mil/mm3 (3.90-5.20) Hemoglobin 9.5g/dL (12.0-15.6) Hematocrit 29.8% (35.0-46.0) Mean Corpuscular Volume 83.2fL (81-100) Mean Corpuscular Hemoglobin 26.5pg (27.0-35.0) Mean Corpuscular Hemoglobin Concent 31.9% (32.0-37.0) Red Cell Distribution Width 15.3% (12.3-15.4) Platelet Count 295bil/L (150-400) Neutrophils (%) (Auto) 68% (40-74) Lymphocytes (%) (Auto) 20% (14-46) Monocytes (%) (Auto) 4% (4-12) Eosinophils (%) (Auto) 1% (0-5) Basophils (%) (Auto) 0% (0-3) Band Neutrophils % 5% (1-5) Metamyelocytes % 1% (0-0) Myelocytes % 1% (0-0) Sodium Level 142mEq/L (134-144) Potassium Level 3.5mEq/L (3.5-5.2) Chloride Level 108mEq/L (97-108) Carbon Dioxide Level 20mmol/L (18-29) Blood Urea Nitrogen 6mg/dL (8-27) Creatinine 1.07mg/dL (0.57-1.00) Estimat Glomerular Filtration Rate 72mL/min (>59) Glucose Level 125mg/dL (60-99) Calcium Level 8.4mg/dL (8.5-10.1) Magnesium Level 1.8mg/dL (1.6-2.6) Total Bilirubin 0.2mg/dL (0.0-1.2) Aspartate Amino Transf (AST/SGOT) 31U/L (0-50) Alanine Aminotransferase (ALT/SGPT) 13U/L (0-32) Alkaline Phosphatase 85U/L (25-165) Total Protein 5.4g/dL (6.4-8.4) Albumin 3.1g/dL (3.4-5.0) Discharge Medications Discharge Medications Citalopram Hydrobromide (Celexa) 40 Mg Tablet 40 MG PO DAILY (Reported) Levothyroxine (Levothyroxine) 50 Mcg Tablet 50 MCG PO DAILY (Reported) Lisinopril (Lisinopril) 5 Mg Tablet 5 MG PO DAILY (Reported) [employer] Carbonate ([employer] Carbonate) 300 Mg Cap 300 MG PO BID (Reported) Lovastatin (Lovastatin) 40 Mg Tablet 80 MG PO HS (Reported) Metformin ER (Glucophage XR) 500 Mg Tablet 1,000 MG PO HS (Reported) Omeprazole (Omeprazole) 20 Mg Capsule.dr 20 MG PO BID Prescribed by: CLAUDE MORENO MD Triamcinolone Acet (Triamcinolone Acetonide Ointment) 1 Applic/0.25 Gm Oint 60 APPLIC TOP TID (Reported) As needed ([Acetaminophen]) 325 MG TABLET 650 MG PO Q4H PRN PRN For Pain Prescribed by: CLAUDE MORENO MD Albuterol Sulfate (Ventolin HFA Inhaler) 200 Puff/18 Gm Inhaler 1-2 PUFF INH Q4 PRN PRN For Wheezing (Reported) Bisacodyl (Dulcolax) 5 Mg Tablet.dr 5 MG PO DAILY PRN PRN For Constipation ( Reported) Cetirizine HCl (Zyrtec) 10 Mg Capsule 10 MG PO DAILY PRN PRN allergies (Reported ) Docusate Sodium (Colace) 100 Mg Capsule 100 MG PO DAILY PRN PRN For Constipation (Reported) Hydroxyzine Pamoate (Vistaril) 25 Mg Capsule 25 MG PO Q4hrs PRN PRN For Itching (Reported) Tapentadol (Nucynta) 50 Mg Tablet 50-100 MG PO Q4hrs PRN PRN For Pain (Reported ) Miscellaneous Medications Olopatadine HCl (Pataday) 2.5 Ml Drops 2.5 ML OP (Reported) Followup Plan Discharge Diet: Diabetic, Other (Soft, advance textures as tolerated) Discharge Activity: No restrictions Follow-up with PCP in: 2 weeks Claude Moreno MD Feb 17, 2017 07:39
[2017-02-17] MEDS: Pantoprazole 4 mg/mL 10 mL Inj IVPUSH SCH (08:17)
[2017-02-17] MEDS: Heparin 5,000 Unit/mL Inj SUBQ SCH (08:20)
[2017-02-17] MEDS: Ondansetron 2 mg/mL 2 mL Inj IVPUSH PRN (12:55)
[2017-02-17] MEDS ORDERED: TAPE50TA7 PO (13:14)
--- NOTE | 2017-02-17 13:55 | NUR ---
Social Work: Discharge D: EMR reviewed. Pt is on day 7 of hospitalization. Pt discussed in multidisciplinary rounds, pt to discharge today. Pt to d/c to [facility]. T/C to David at [facility] regarding discharge. David is agreeable to pt arriving today. David coordinated transport for pt via wheelchair at 1400. Paperwork in chart, PASRR completed and faxed. SW created packet and faxed orders. Pt updated and agreeable to plan. RN, UC, pt/family, and [facility] all updated and agreeable to plan. No additional d/c needs. A: Pt for whom SNF is medically necessary . Plan: Pt to d/c to [facility] via wheelchair van at 1400. RN, UC, pt/family, and [facility] all updated and agreeable to plan. No additional d/c needs. Nancy Sandoval MSW
--- NOTE | 2017-02-17 14:11 | NUR ---
Discharge Patient discharge to [facility] with all belongings at 1408. Gave report to LINK [facility]. Dc'd IV intact. Vitals stable. Patient left floor on wheelchair accompanied by transportation economics teacher with no signs of distress.
== END 2017-02-17 14:00 | DRG 391 ==
LOC: MPC 13:38
PROVIDERS: ADMIT Internal Medicine; ATTEND Internal Medicine
PROC: 0DJ08ZZ Inspection of Upper Intestinal Tract, Via Natural or Artificial Opening Endoscopic (ICD-10-PCS; principal; 2017-02-15 14:45)
DX: A09 Infectious gastroenteritis and colitis, unspecified (principal); G93.40 Encephalopathy, unspecified; E87.0 Hyperosmolality and hypernatremia; N17.9 Acute kidney failure, unspecified; K29.00 Acute gastritis without bleeding; E11.9 Type 2 diabetes mellitus without complications; E03.9 Hypothyroidism, unspecified; K22.2 Esophageal obstruction; K21.9 Gastro-esophageal reflux disease without esophagitis; E78.5 Hyperlipidemia, unspecified; I10 Essential (primary) hypertension; R33.9 Retention of urine, unspecified; J45.909 Unspecified asthma, uncomplicated; Z88.0 Allergy status to penicillin